=== PATIENT | female | born 2000 | race Caucasian/White ===

== ENCOUNTER 2021-05-14 13:42 | Emergency (ER) | payer OTHER ==
[2021-05-14 15:13] VITALS: BP 123/69; PULSE 81
--- NOTE | 2021-05-14 15:45 | EDM.PDOC ---
ED HPI GENERAL MEDICAL PROBLEM - General Chief Complaint: Abdominal Pain Stated Complaint: RT SIDE ABD PAIN NEAR BELLY BUTTON Time Seen by Provider: 05/14/21 15:45 Source of Information: Reports: Patient History Limitations: Reports: No Limitations - History of Present Illness INITIAL COMMENTS - FREE TEXT/NARRATIVE: 20-year-old female presents to the ED complaining of intermittent right lower quadrant abdominal pain which was quite severe earlier today and now is somewhat better at the time of exam. She states she threw up for no good reason on , May 12. She did have 1 diarrhea stool this morning. Appetite has been relatively poor. No fever or chills. She takes control pill and expects her period to be occurring in about a week's time. No previous abdominal surgery. It hurts to walk at times and cough or deep deep breaths at times. She denies any genitourinary complaints Onset: Gradual Onset Date: 05/13/21 Duration: Hour(s):, Intermittent Location: Reports: Abdomen (Primarily right lower quadrant abdominal pain) Quality: Reports: Ache, Other (Appears to have a colicky component to the pain) Severity: Moderate Improves with: Reports: Rest Worsens with: Reports: Other (To be worse with certain movements at times.) Context: Denies: Activity, Exercise, Lifting, Sick Contact, Trauma, Other Treatments TEAM PRIMARY CARE PHYSICIAN: Reports: Acetaminophen Abdomen Pain Score (Numeric/FACES): 5 - Related Data Allergies Allergy/AdvReac Type Severity Reaction Status Date / Time amoxicillin Allergy Hives Verified 05/14/21 15:15 Home Meds: Home Meds 1 tab PO DAILY 07/11/16 [History] Sulfamethoxazole/Trimethoprim [Bactrim Ds Tablet] 1 each PO BID #8 tablet 05/14/21 [Rx] Past Medical History HEENT History: Reports: Allergic Rhinitis Respiratory History: Reports: Asthma Dermatologic History: Reports: Other (See Below) Other Dermatologic History: acne-on control for this Social & Family History - Tobacco Use Tobacco Use Status *Q: Never Tobacco User - Caffeine Use Caffeine Use: Reports: Coffee, Soda - Recreational Drug Use Recreational Drug Use: No - Living Situation & Occupation Living situation: Reports: Single ED ROS GENERAL - Review of Systems Review Of Systems: See Below Constitutional: Reports: Decreased Appetite. Denies: Fever, Chills, Malaise, Weakness, Fatigue, Weight Loss HEENT: Reports: No Symptoms Respiratory: Reports: No Symptoms Cardiovascular: Reports: No Symptoms Endocrine: Reports: No Symptoms GI/Abdominal: Reports: Abdominal Pain, Diarrhea (Area stool x1 this morning), Nausea, Vomiting (Assist x1 morning May 12) : Reports: No Symptoms, Other (Her menstrual cycle is due in about a week's time.) Musculoskeletal: Reports: No Symptoms ( It is on time due to control pill) Skin: Reports: No Symptoms Neurological: Reports: No Symptoms Psychiatric: Reports: No Symptoms Hematologic/Lymphatic: Reports: No Symptoms ED EXAM, GI/ABD - Physical Exam Exam: See Below Exam Limited By: No Limitations General Appearance: Alert, WD/WN, No Apparent Distress, Other (Temperature is 36.9. Heart rate is 81 and sinus respiratory is 14 with O2 sats of 96% room air BP 10/02/1968) Eyes: Bilateral: Normal Appearance (No scleral icterus or blepharal pallor) Throat/Mouth: Normal Inspection, Normal Lips, Normal Teeth, Normal Oropharynx Head: Atraumatic, Normocephalic Neck: Normal Inspection, Supple, Full Range of Motion. No: Lymphadenopathy (L), Lymphadenopathy (R) Respiratory/Chest: No Respiratory Distress, Lungs Clear, Normal Breath Sounds, No Accessory Muscle Use Cardiovascular: Normal Peripheral Pulses, Regular Rate, Rhythm, No Edema, No Gallop, No Murmur, No Rub GI/Abdominal Exam: Soft, Non-Tender, No Organomegaly, No Mass, Pelvis Stable, Abnormal Bowel Sounds (All sounds are few and far between.). No: Guarding, Rigid, Rebound, Tender Back Exam: Normal Inspection, Full Range of Motion. No: CVA Tenderness (L), CVA Tenderness (R) Extremities: Normal Inspection, Normal Range of Motion, No Pedal Edema Neurological: Alert, Oriented, CN II-XII Intact, Normal Cognition Psychiatric: Normal Affect, Normal Mood Skin Exam: Warm, Dry, Intact, Normal Color, No Rash Course - Vital Signs Last Recorded V/S: Last Vital Signs Temp 36.9 C 05/14/21 15:11 Pulse 81 05/14/21 15:11 Resp 14 05/14/21 15:11 BP 123/69 05/14/21 15:11 Pulse Ox 96 05/14/21 15:11 - Orders/Labs/Meds Orders: Active Orders 24 hr Category Date Time Status Abdomen 1V Flat [CR] Stat Exams 05/14/21 15:51 Taken Labs: Laboratory Tests 05/14/21 05/14/21 05/14/21 Range/Units 15:34 15:41 15:41 WBC 7.15 (3.98-10.04) K/mm3 RBC 4.18 (3.98-5.22) M/mm3 Hgb 12.5 (11.2-15.7) gm/dl Hct 36.7 (34.1-44.9) % MCV 87.8 (79.4-94.8) fl MCH 29.9 (25.6-32.2) pg MCHC 34.1 (32.2-35.5) g/dl RDW Std Deviation 36.1 L (36.4-46.3) fL Plt Count 247 (182-369) K/mm3 MPV 11.3 (9.4-12.3) fl Neut % (Auto) 59.7 (34.0-71.1) % Lymph % (Auto) 30.2 (19.3-51.7) % [place] % (Auto) 6.6 (4.7-12.5) % Eos % (Auto) 2.7 (0.7-5.8) Baso % (Auto) 0.7 (0.1-1.2) % Neut # (Auto) 4.27 (1.56-6.13) K/mm3 Lymph # (Auto) 2.16 (1.18-3.74) K/mm3 [place] # (Auto) 0.47 H (0.24-0.36) K/mm3 Eos # (Auto) 0.19 (0.04-0.36) K/mm3 Baso # (Auto) 0.05 (0.01-0.08) K/mm3 Sodium 140 (136-145) mEq/L Potassium 4.4 (3.5-5.1) mEq/L Chloride 105 (98-107) mEq/L Carbon Dioxide 27 (21-32) mEq/L Anion Gap 12.4 (5-15) BUN 12 (7-18) mg/dL Creatinine 1.1 H (0.55-1.02) mg/dL Est Cr Clr Drug Dosing 76.37 mL/min Estimated GFR (MDRD) > 60 (>60) mL/min BUN/Creatinine Ratio 10.9 L (14-18) Glucose 94 (70-99) mg/dL Calcium 9.5 (8.5-10.1) mg/dL Total Bilirubin 0.2 (0.2-1.0) mg/dL AST 18 (15-37) U/L ALT 19 (14-59) U/L Alkaline Phosphatase 39 L (46-116) U/L C-Reactive Protein 3.6 H* (<1.0) mg/dL Total Protein 8.0 (6.4-8.2) g/dl Albumin 4.0 (3.4-5.0) g/dl Globulin 4.0 gm/dL Albumin/Globulin Ratio 1.0 (1-2) Urine Color Yellow (Yellow) Urine Appearance Clear (Clear) Urine pH 8.0 (5.0-8.0) Ur Specific [place] 1.020 (1.005-1.030) Urine Protein Negative (Negative) Urine Glucose (UA) Negative (Negative) Urine Ketones Negative (Negative) Urine Occult Blood Negative (Negative) Urine Nitrite Negative (Negative) Urine Bilirubin Negative (Negative) Urine Urobilinogen 0.2 (0.2-1.0) Ur Leukocyte Esterase Trace H (Negative) Urine RBC 0-5 (0-5) /hpf Urine WBC 0-5 (0-5) /hpf Ur Squamous Epith Cells 5-10 H (0-5) /hpf Amorphous Sediment Few H (NOT SEEN) /hpf Urine Bacteria Few (FEW) /hpf Urine Mucus Few (FEW) /hpf Meds: Medications Discontinued Medications Generic Name Dose Route Start Last Admin Trade Name Freq PRN Reason Stop Dose Admin Magnesium Citrate 210 ml 05/14/21 17:51 05/14/21 18:07 Magnesium Citrate Solution 296 Ml Bottle PO 05/14/21 17:52 Not Given ONETIME ONE - Radiology Interpretation Free Text/Narrative:: 20-year-old female presents to the ED for evaluation of right lower quadrant abdominal pain. She states it was quite severe when she came into the ED and she was walking hunched over. She now able to walk standing up and the pain is pretty well gone. She had spontaneous emesis on , May 12 and has not ate or drank very much in the last 2 days. No associated fever or chills. She reports that she did have 1 diarrheal stool this morning. Denies possibility of as she is on control pill. Expects her period in about a week's time. Examination reveals bowel sounds to be few and far between. No surgical scars. Abdomen is soft with patient with no organomegaly or masses. No guarding or rebound tenderness. Nurses have already ordered labs and a urinalysis and 1 view of the abdomen which is not yet been done. - Re-Assessments/Exams Free Text/Narrative Re-Assessment/Exam: 05/14/21 17:29 Labs reveal a normal white count at 7.15. The auto differential shows 59.7% neutrophils. Hemoglobin is 12.5 with hematocrit 36.7 platelet count 247,000 sodium 140 with a potassium of 4.4 chloride 105 with a bicarb of 27. Anion gap is 12.4 BUN is 12 with a creatinine of 1.1 and a GFR greater than 60. Glucose is 94 calcium is 9.5 total bilirubin is 0.2 liver function is otherwise normal C-reactive protein is elevated at 3.6 suggesting underlying infective process urinalysis shows trace of leukocyte esterase with 5-10 squamous epithelial cells and a few amorphous cells KUB reveals increased stool in the cecum and throughout most of the transverse colon and portions of the upper descending colon the lower descending colon and sigmoid colon are empty. 05/14/21 17:49 reexamined the patient. She does have tenderness over a palpable right colon but no evidence of appendicitis. Her elevated CRP is concerning for a possible low-grade urinary tract infection with epithelial cells noted in the urine suggesting upper urinary tract infection perhaps in the ureter. I am going to place her on Citroma 7 ounces by mouth mixed with 7 ounces of juice of choice wants to provide bowel cleanse. Ayo place her on Bactrim double strength 1 tablet twice daily for the next 4 days to clear up urinary tract infection. Departure - Departure Time of Disposition: 17:50 Disposition: Home, Self-Care 01 Condition: Fair Clinical Impression: Constipation by delayed colonic transit Urinary tract infection Qualifiers: Urinary tract infection type: urethritis Qualified Code(s): N34.2 - Other urethritis - Discharge Information *PRESCRIPTION DRUG MONITORING PROGRAM REVIEWED*: Not Applicable *COPY OF PRESCRIPTION DRUG MONITORING REPORT IN PATIENT GEOVANI: Not Applicable Prescriptions: Sulfamethoxazole/Trimethoprim [Bactrim Ds Tablet] 1 each PO BID #8 tablet Instructions: Abdominal Pain, Adult, [id number] Referrals: Torrey Martin MD [Primary Care Provider] - Forms: ED Department Discharge Additional Instructions: Evaluation in the emergency room today in regards to persistent right lower quadrant abdominal pain which has been coming and going to bed suggesting a colicky component to the pain. Diarrhea this morning and one spontaneous vomiting episode on morning 2 days ago. No appreciable fever or chills. Labs are giving a mixed result with a normal white count but a mildly elevated CRP at 3.6 suggesting an underlying bacterial infection. There are a few pus cells in the urine as well suggesting an upper urinary tract infection likely in the ureter which travels from the kidney down to the bladder and recall that your tightness. Therefore treatment is with antibiotic Bactrim double strength 1 tablet twice daily for the next 4 days to clear up urinary tract infection. Take Motrin 600 mg every 6 hours for pain relief as needed x- ray of the abdomen reveals increased stool throughout the right hemicolon and transverse colon combined with mild constipation it too could be causing intermittent colicky type pain in this area but would not elevate your CRP which is a nonspecific indicator of bacterial infection. Suggest magnesium citrate or Citroma 7 ounces taken by mouth with 7 ounces of juice of choice once to provide bowel cleanse. It would take about an hour to an hour and a half after you take it to start work in your bowels will likely move 3-4 times often ending and diarrhea. Follow-up as indicated if your abdominal pain is not markedly improved after bowel cleanse or for patients persist longer than the next 24 hours. There was no clinical evidence of appendicitis on examination x2. Sepsis Event Note (ED) - Evaluation Sepsis Screening Result: No Definite Risk - Focused Exam Vital Signs: Vital Signs Temp Pulse Resp BP Pulse Ox 05/14/21 15:11 36.9 C 81 14 123/69 96 - My Orders Last 24 Hours: My Active Orders 05/14/21 15:51 Abdomen 1V Flat [CR] Stat - Assessment/Plan Last 24 Hours: My Active Orders 05/14/21 15:51 Abdomen 1V Flat [CR] Stat
[2021-05-14] MEDS ORDERED: Magnesium Citrate Solution 296 ML Bottle PO ONE (17:51)
--- NOTE | 2021-05-15 07:13 | CR ---
Abdomen: Supine view of the abdomen was obtained. Comparison: No prior study is available. Bowel gas pattern appears normal. No abnormal calcifications are seen. No abnormal soft tissue abnormality is seen. Visualized lung bases are clear. Bony structures appear within normal limits. Impression: 1. Nothing acute is seen on supine abdominal x-ray. Diagnostic code #1
== END 2021-05-14 18:02 | disposition home or self-care (01) ==
LOC: JD.ED 13:42
DX: K59.01 Slow transit constipation (principal); N34.2 Other urethritis; J45.909 Unspecified asthma, uncomplicated; Z88.0 Allergy status to penicillin
CPT/HCPCS: 36415; 74018; 74018-26; 80053; 81001; 85025; 86140; 99284; 99284-25

== ENCOUNTER 2025-05-21 10:35 | Inpatient (IN) | payer BC ==
[2025-05-21] MEDS ORDERED: Ondansetron 4 MG/2 ML SDV IVPUSH PRN (10:44)
[2025-05-21] MEDS ORDERED: Nalbuphine 10 MG/1 ML Vial IVPUSH PRN (10:44)
[2025-05-21 11:17] LABS: BASOPHILS ABSOLUTE AUTO 0.0 K/mm3 (0.0-0.2); BASOPHILS PERCENT AUTO 0.3 % (0.0-1.0); EOSINOPHILS ABSOLUTE AUTO 0.1 K/mm3 (0.0-0.4); EOSINOPHILS PERCENT AUTO 1.1 % (0.0-6.0); IMMATURE GRAN ABSOLUTE AUTO 0.06 K/mm3 (0.00-0.05); IMMATURE GRAN PERCENT AUTO 0.5 % (0.0-0.4); LYMPHOCYTES ABSOLUTE AUTO 1.6 K/mm3 (1.0-4.8); LYMPHOCYTES PERCENT AUTO 14.3 % (24.0-44.0); MEAN PLATELET VOLUME 11.8 fl (9.4-12.3); MONOCYTES ABSOLUTE AUTO 0.6 K/mm3 (0.0-0.8); MONOCYTES PERCENT AUTO 5.1 % (0.0-8.0); NEUTROPHILS ABSOLUTE AUTO 8.7 K/mm3 (1.8-7.7); NEUTROPHILS PERCENT AUTO 78.7 % (41.0-71.0); NRBC ABSOLUTE 0.00 (0.00-0.02); NRBC PERCENT 0.0 % (0.0-0.2); PLATELET COUNT,PLT 166 K/mm3 (150-400); RED BLOOD CELL COUNT 3.98 M/mm3 (4.10-5.30); WHITE BLOOD CELL COUNT,WBC 11.06 K/mm3 (3.9-11.3)
[2025-05-21] MEDS: Misoprostol 25 MCG (1/4 of 100 MCG) Tab VAG ONE (11:53)
[2025-05-21] MEDS ORDERED: ePHEDrine 50 MG/ML SDV IVPUSH PRN (12:31)
[2025-05-21] MEDS ORDERED: diphenhydrAMINE 50 MG/ML SDV IVPUSH PRN (12:31)
[2025-05-21] MEDS: Lactated Ringers 1,000 ML IV SCH (18:30)
[2025-05-21] MEDS: fentaNYL 100 MCG/2 ML SDV EPIDUR PRN (18:48)
[2025-05-21] MEDS: Bupivacaine/fentaNYL/NS 100 ML Bag EPIDUR PRN (18:48)
[2025-05-21] MEDS: Sodium Chloride 0.9% 10 ML Syringe FLUSH SCH (21:51)
[2025-05-22] MEDS: Oxytocin/0.9 % Sodium Chloride 30 UNIT/500 ML BAG IV SCH (01:08)
[2025-05-22] MEDS ORDERED: Lidocaine 2% with EPINEPHrine 1:200,000 20 ML SDV ONE (01:10)
[2025-05-22] MEDS: Witch Hazel Medicated Pads 40/Jar TOP PRN (04:07)
[2025-05-22] MEDS: Benzocaine/Menthol 20%-0.5% Spray 78 GM Cannister TOP PRN (04:07)
[2025-05-23] MEDS: Measles, Mumps & Rubella Vaccine 0.5 ML SDV SUBCUT ONE (15:30)
[2025-05-23 16:46] VITALS: PULSE 88
[2025-05-23 16:47] VITALS: BP 118/72
== END 2025-05-23 17:45 | disposition home or self-care (01) | DRG 560 ==
LOC: JD.OBCHECK 10:35 → JD.OB 10:35 → JD.OBCHECK 10:43 → JD.OB 10:44 → OBSVTOIN 05-22 01:05 → JD.OB 05-22 01:07
PROVIDERS: ADMIT Obstetrics & Gynecology; ATTEND Obstetrics & Gynecology
PROC: 3E0DXGC Introduction of Other Therapeutic Substance into Mouth and Pharynx, External Approach (ICD-10-PCS; principal; 2025-05-22)
PROC: 0KQM0ZZ Repair Perineum Muscle, Open Approach (ICD-10-PCS; principal; 2025-05-22)
PROC: 3E0R3BZ Introduction of Anesthetic Agent into Spinal Canal, Percutaneous Approach (ICD-10-PCS; principal; 2025-05-22)
PROC: 10E0XZZ Delivery of Products of Conception, External Approach (ICD-10-PCS; principal; 2025-05-22)
PROC: 10907ZC Drainage of Amniotic Fluid, Therapeutic from Products of Conception, Via Natural or Artificial Opening (ICD-10-PCS; principal; 2025-05-22)
PROC: 3E0234Z Introduction of Serum, Toxoid and Vaccine into Muscle, Percutaneous Approach (ICD-10-PCS; principal; 2025-05-22)
DX: O48.0 Post-term pregnancy (principal); Z3A.41 41 weeks gestation of pregnancy; Z37.0 Single live birth; Z23 Encounter for immunization; Z88.0 Allergy status to penicillin; Z98.890 Other specified postprocedural states; Z79.899 Other long term (current) drug therapy; O70.1 Second degree perineal laceration during delivery
CPT/HCPCS: 36415; 51701; 51702; 59025; 59409; 85025; 86592; 90471; 90707; A9270-GY; J0690; J2004; J3010; J3490; J7120; J7999